=== PATIENT | male | born 1970 | race African-American/Black ===

== ENCOUNTER 2020-04-23 14:24 | Emergency (ER) | payer MEDICAID ==
[~2020-04-23] VITALS: Ht 180.3 cm; Wt 77.0 kg
[2020-04-23 14:43] VITALS: BP 128/83
[2020-04-23] MEDS ORDERED: IBUPROFEN 600MG TABLET PO ONE (14:45)
[2020-04-23] MEDS ORDERED: LIDOCAINE 1%/EPI 1:100,000 10 ML VIAL IJ ONE (14:45)
[2020-04-23] MEDS ORDERED: BACITRACIN ZINC OINT UDPKT TOP ONE (14:45)
[2020-04-23] MEDS ORDERED: TETANUS, DIPHTHERIA, PERTUSSIS VAC/PF 0.5ML (>7YR OLD) IM ONE (14:45)
[2020-04-23] MEDS: LIDOCAINE HCL/EPINEPHRINE 1%-EPI 1:100,000 50 ML VIAL INFIL NR (14:57)
[2020-04-23] MEDS ORDERED: CEPH250C2 MT (15:59)
== END 2020-04-23 16:11 | disposition home or self-care (01) ==
LOC: ER 14:24
DX: S71.112A Laceration without foreign body, left thigh, initial encounter (principal); W26.0XXA Contact with knife, initial encounter; Y93.89 Activity, other specified; Y92.89 Other specified places as the place of occurrence of the external cause; Y99.8 Other external cause status
CPT/HCPCS: 12002; 99283; J3490

== ENCOUNTER 2020-06-02 20:41 | Emergency (ER) | payer MEDICAID ==
[~2020-06-02] VITALS: Ht 180.3 cm; Wt 73.0 kg
[~2020-06-02 20:41] MED LIST: CEPH250C2 MT
[2020-06-02 20:42] VITALS: BP 135/79
[2020-06-02] MEDS ORDERED: BACITRACIN ZINC OINT UDPKT TOP NR (21:15)
== END 2020-06-02 21:45 | disposition home or self-care (01) ==
LOC: ER 20:41
DX: S71.112D Laceration without foreign body, left thigh, subsequent encounter (principal); Z98.890 Other specified postprocedural states; Z79.899 Other long term (current) drug therapy; X58.XXXD Exposure to other specified factors, subsequent encounter
CPT/HCPCS: 99282